=== PATIENT | female | born 1980 | race Caucasian/White ===

== ENCOUNTER 2024-11-17 17:55 | Emergency (ER) | payer BC ==
[~2024-11-17] VITALS: Ht 165.1 cm; Wt 65.8 kg
[~2024-11-17 17:55] MED LIST: 8 Hour C500 MG PO; ACET250; ACET250 PO; ALBU90I INH; ALBU90OI INH; AMOX500 PO; BUPR100; CARI350; CODGUAEL PO; ESCI10; ESCI20; ESTR2; FURO40 PO; HYDACE10B PO; HYDACE5; HYDACE5 PO; HYDR1TAB94; IBUP800 PO; IRON325 MG PO; OSEL75CA PO; OXYACE5T; OXYACE5T PO; Omeprazole20 M1 PO; PROM25 PO; RXHYDACE PO; RXOXYACE PO; SERTRALINE HCL; SUMA25; TOPI25; VALS80
[2024-11-17] MEDS ORDERED: OXYCODONE-ACET1 EAC3 PO (18:11)
[2024-11-17] MEDS ORDERED: PROG100 PO (18:11)
[2024-11-17 18:30] VITALS: BP 120/64
[2024-11-17 18:55] LABS: BASOPHILS ABSOLUTE AUTO 0.06 K/mm3 (0.00-0.23); BASOPHILS PERCENT AUTO 0 % (0-2); EOSINOPHILS ABSOLUTE AUTO 0.06 K/mm3 (0.00-0.68); EOSINOPHILS PERCENT AUTO 0 % (0-6); Hematocrit 40.9 % (33.0-51.0); Hemoglobin 13.5 g/dL (11.5-16.0); IMMATURE GRAN ABSOLUTE AUTO 0.10 K/mm3 (0.00-0.10); IMMATURE GRAN PERCENT AUTO 1 % (0-1); LYMPHOCYTES ABSOLUTE AUTO 2.03 K/mm3 (0.84-5.20); LYMPHOCYTES PERCENT AUTO 10 % (21-46); MONOCYTES ABSOLUTE AUTO 2.04 K/mm3 (0.16-1.47); MONOCYTES PERCENT AUTO 10 % (4-13); Mean Corpuscular HGB Conc 33.0 g/dL (31.5-36.5); Mean Corpuscular Volume 95 fL (80-100); NEUTROPHILS ABSOLUTE AUTO 17.03 K/mm3 (1.96-9.15); NEUTROPHILS PERCENT AUTO 80 % (41-73); NRBC ABSOLUTE 0.00 K/mm3 (0.00-0.02); NRBC Auto 0.0 /100 WBC (0.0-0.2); Platelet Count 274 K/mm3 (150-400); RDW Coefficient Variation 13.7 % (11.7-14.2); RDW Standard Deviation 48.4 fL (35.1-46.3)
[2024-11-17] MEDS ORDERED: CeFAZolin Sodium 1,000 MG in NS 50 ML IV ONE (19:00)
[2024-11-17] MEDS ORDERED: CEPH500 PO (19:11)
[2024-11-17 19:42] LABS: Alanine Aminotransfer (ALT/SGP 21.0 U/L (12-78); Albumin, Blood 3.4 g/dL (3.4-5.0); Albumin/Globulin Ratio 1.1 (0.8-1.8); Anion Gap 6.0 mmol/L (3-11); Aspartate Aminotrans (AST/SGOT 9.0 U/L (12-37); Bilirubin, Total 0.9 mg/dL (0.1-1.0); Blood Urea Nitrogen 7.0 mg/dL (8-24); CO2, Blood 27.0 mmol/L (21-32); Calcium, Blood 8.9 mg/dL (8.5-10.1); Chloride, Blood 109.0 mmol/L (98-108); Creatinine, Blood 0.65 mg/dL (0.40-1.00); Globulin, Blood 3.1 g/dL (2.2-4.0); Glucose, Blood 104.0 mg/dL (70-99); Potassium, Blood 3.5 mmol/L (3.5-5.5); Sodium, Blood 138.0 mmol/L (136-145); Total Protein, Blood 6.5 g/dL (6.4-8.2)
== END 2024-11-17 20:19 | disposition home or self-care (01) ==
LOC: ER 17:55
PROVIDERS: Student in an Organized Health Care Education/Training Program
DX: T81.31XA Disruption of external operation (surgical) wound, not elsewhere classified, initial encounter (principal); Z88.8 Allergy status to other drugs, medicaments and biological substances; Z79.899 Other long term (current) drug therapy
CPT/HCPCS: 80053; 85025; 86850; 86900; 86901; 96365; 99283-25; J0690